=== PATIENT | female | born 1975 | race Caucasian/White ===

== ENCOUNTER 2018-03-07 18:41 | Inpatient (IN) | payer MEDICAID ==
[~2018-03-07] VITALS: Ht 162.6 cm; Wt 75.3 kg
[~2018-03-07 18:41] MED LIST: DULO60EC PO; ESOM40EC PO; FOLI1TAB19 PO; GLIP5TER PO; INSU100S22 SUBQ; MEX2.5 PO; NATE60TA PO; PRED10TA5 PO; TRAM50TA1 PO; ZOLP10TA1 PO; [UNRECOGNIZED DRUG - CODE] PO
[2018-03-07 19:00] VITALS: BP 127/82
[2018-03-07] MEDS ORDERED: KETOROLAC 30 MG/ML VIAL IM ONE (19:25)
--- NOTE | 2018-03-07 19:45 | NUR ---
ASSUME CARE OF 42 Y/O FEMALE WITH CHIEF COMPLAINT OF ABDOMINAL PAIN. PT REPORTS RIGHT UPPER ABD PAIN ASSOCIATED WITH NAUSEA OVER THE PAST 2 DAYS. PT HAS A RECENT HX OF CHOLELITHIASIS, CURRENTLY REPORTS 10 OUT OF 10 PAIN. PT IN STABLE CONDITION. AAOX3, RESP EVEN AND UNLABORED, STEADY GAIT, ABD SOFT , NON-DISTENDED, NON-TENDER, NO GUARDING , NO REBOUND. NO MASSESS. NOTED. BLIND TEACHER WILL IMPLEMENT ORDERS.
[2018-03-07] MEDS ORDERED: KETOROLAC 30 MG/ML VIAL ONE (20:06)
--- NOTE | 2018-03-07 20:06 | NUR ---
accompanied by c/o ruq pain with nausea x 2 days being followed by Dr.A Swain for cholelithiasis hx---cholelithiasis, dermatosis rx---neurontin 300mg tid, tramadol 100mg hs, methotrexate 10mg sat/sun only, atarax 50mg hs, cymbalta 60mg qd, dexilant 60mg qd, plaquenil 200mg bid, folic acid 1mg qd, loratadine 30mg tid, prednisone 10mg qd
[2018-03-07] MEDS ORDERED: HYDROcodone/APAP 5/325 MG 1 TAB TAB PO ONE (20:25)
[2018-03-07 21:13] LABS: BASOPHILS % (AUTO) 0.3 % (0.0-2.0); EOSINOPHILS # (AUTO) 0.1 K/uL (0-0.4); EOSINOPHILS % (AUTO) 1.9 % (0.0-4.0); HEMATOCRIT 42.8 % (36-48); LYMPHOCYTES # (AUTO) 1.1 K/uL (2.5-16.5); LYMPHOCYTES % (AUTO) 18.3 % (20.5-51.1); MEAN CORPUSCULAR HEMOGLOBIN 29 pg (27-31); MEAN CORPUSCULAR HGB CONC 33 g/dL (33-37); MEAN CORPUSCULAR VOLUME 87.8 fL (80-94); MONOCYTES # (AUTO) 0.1 K/uL (0.8-1.0); MONOCYTES % (AUTO) 1.7 % (1.7-9.3); NEUTROPHILS # (AUTO) 4.5 K/uL (1.8-7.7); NEUTROPHILS % (AUTO) 77.8 % (42.2-75.2); PLATELET COUNT (AUTO) 259 K/uL (140-450); RED BLOOD CELL COUNT(AUTO) 4.88 MIL/uL (4.20-5.40); RED CELL DISTRIBUTION WIDTH 14.3 % (11.6-13.7); WHITE BLOOD COUNT (AUTO) 5.8 K/uL (4.8-10.8)
--- NOTE | 2018-03-07 21:22 | NUR ---
PT LEFT FOR CT. NAD NOTED UPON TRANSPORT.
[2018-03-07 21:43] LABS: ANION GAP 11.1 (8-16); CARBON DIOXIDE 29.7 mmol/L (21-32); POTASSIUM 4.8 mmol/L (3.5-5.1)
[2018-03-07 21:44] LABS: ALBUMIN 3.4 g/dL (3.4-5.0); TOTAL BILIRUBIN 0.5 mg/dL (0.0-1.0)
[2018-03-07] MEDS ORDERED: HYDROcodone/APAP 5/325 MG 1 TAB TAB ONE (21:47)
[2018-03-07] MEDS ORDERED: INSULIN REGULAR, HUMAN 100 UNIT/ML VIAL SUBQ ONE (22:00)
[2018-03-07] MEDS ORDERED: MORPHINE SULFATE 4 MG/ML SYR IVP ONE (22:45)
[2018-03-07] MEDS ORDERED: NACL 0.9% 1,000 ML IV SCH (22:57)
[2018-03-07] MEDS ORDERED: MORPHINE SULFATE 2 MG/ML SYR IVP PRN (23:00)
[2018-03-07] MEDS ORDERED: ZOLPIDEM 5 MG TAB PO PRN (23:00)
[2018-03-07] MEDS ORDERED: DOCUSATE SODIUM 100 MG GELCAP PO PRN (23:00)
[2018-03-07] MEDS ORDERED: ACETAMINOPHEN 325 MG TAB PO PRN (23:00)
[2018-03-07] MEDS ORDERED: LORazepam 2 MG/ML VIAL IM/IVP PRN (23:00)
[2018-03-07 23:15] VITALS: BP 122/83
--- NOTE | 2018-03-07 23:15 | NUR ---
REPORT RECEIVED FROM ED NURSE AT BEDSIDE. PT IN STABLE CONDITION. AAOX4. INTRODUCED SELF TO PT AND FAMILY. BOARD UPDATED. PT AMBULATORY WITH BATHROOM PRIVILEGES. IV SITE L AC 20G RUNNING D5 1/2NS @115ML/HR. SKIN WARM, DRY, AND INTACT WITH NO OPEN WOUNDS. PT HAS HX OF DERMATOSIS. PT COMPLAINS OF PAIN 03/04. WILL MEDICATE. BED LOCKED IN LOW POSITION. CALL ROBIN WITHIN REACH. SAFETY MEASURES IN PLACE.
[2018-03-07 23:43] LABS: PROTHROMBIN TIME 9.3 secs (10.8-13.4)
[2018-03-07] MEDS ORDERED: DEXTROSE 50% 50 ML SYR IVP PRN (23:50)
[2018-03-08] VITALS: BP 127/81
[2018-03-08 00:04] LABS: FREE T4 (FREE THYROXINE) 1.02 ng/dL (0.76-1.46); MAGNESIUM 1.8 mg/dL (1.8-2.4); PHOSPHORUS 4.1 mg/dL (2.5-4.9); THYROID STIMULATING HORMONE 0.94 uIU/mL (0.34-3.74)
[2018-03-08] MEDS: BLOOD GLUCOSE MONITORING 1 DEV DEV FS SCH ×4 (00:04→21:18)
--- NOTE | 2018-03-08 00:04 | NUR ---
PT BS [address] POWER ASKED TO CHECK BS. BS 313.
--- NOTE | 2018-03-08 00:06 | NUR ---
PT COMPLAINS OF 9/10 PAIN. MORPHINE GIVEN IVP. PT TOLERATED WELL.
[2018-03-08] MEDS: DEXT 5% / NACL 0.45% 1,000 ML IV SCH ×3 (00:07→16:54)
[2018-03-08] MEDS: INSULIN LISPRO SLIDING SCALE 100 UNITS/ML VIAL SUBQ PRN ×2 (00:11→21:49)
--- NOTE | 2018-03-08 00:11 | NUR ---
BS 313. 8 UNITS OF HUMALOG GIVEN.
[2018-03-08] MEDS ORDERED: INSULIN LANTUS 100 UNITS/ML 10 ML VIAL SUBQ ONE (00:15)
[2018-03-08] MEDS ORDERED: GABA300C PO (00:22)
[2018-03-08] MEDS ORDERED: ATA25 PO (00:22)
[2018-03-08] MEDS ORDERED: LORA10OD44 PO (00:22)
[2018-03-08] MEDS ORDERED: DEXL60EC PO (00:22)
[2018-03-08] MEDS ORDERED: HYDR200T5 PO (00:22)
--- NOTE | 2018-03-08 00:24 | NUR ---
ONE TIME ORDER OF LANTUS TO BE GIVEN. 32 UNITS OF LANTUS GIVEN.
--- NOTE | 2018-03-08 01:50 | NUR ---
PT WATCHING TV WITH FAMILY MEMBER. NO S/S OF DISTRESS.
--- NOTE | 2018-03-08 03:15 | NUR ---
PT ATTEMPTING TO SLEEP. WATCHING TV WITH FAMILY AT BEDSIDE. NO COMPLAINTS OF PAIN OR DISCOMFORT. WILL CONTINUE TO MONITOR.
[2018-03-08] MEDS: ONDANSETRON 4 MG/2 ML VIAL IM/IVP PRN ×2 (05:05→12:50)
--- NOTE | 2018-03-08 05:05 | NUR ---
PAIN 8/10. FACIAL GRIMACE, RESTLESSNESS, AND HEAVY BREATHING NOTED. MORPHINE 1MG GIVEN IVP. PT ALSO COMPLAINS OF NAUSEA. ZOFRAN GIVEN. BS 146. NO INSULIN COVERAGE NEEDED. WILL CONTINUE TO MONITOR.
[2018-03-08] MEDS: PANTOPRAZOLE 40 MG TABEC PO SCH (06:38)
--- NOTE | 2018-03-08 06:38 | NUR ---
PROTONIX GIVEN. PT TOLERATED WELL.
[2018-03-08 06:44] LABS: BASOPHILS % (AUTO) 0.5 % (0.0-2.0); EOSINOPHILS # (AUTO) 0.6 K/uL (0-0.4); EOSINOPHILS % (AUTO) 11.6 % (0.0-4.0); HEMATOCRIT 39.8 % (36-48); HEMOGLOBIN 13.1 g/dL (12.0-16.0); LYMPHOCYTES # (AUTO) 1.8 K/uL (2.5-16.5); LYMPHOCYTES % (AUTO) 36.3 % (20.5-51.1); MEAN CORPUSCULAR HEMOGLOBIN 29 pg (27-31); MEAN CORPUSCULAR HGB CONC 33 g/dL (33-37); MEAN CORPUSCULAR VOLUME 87.2 fL (80-94); MONOCYTES # (AUTO) 0.2 K/uL (0.8-1.0); MONOCYTES % (AUTO) 3.6 % (1.7-9.3); NEUTROPHILS # (AUTO) 2.3 K/uL (1.8-7.7); PLATELET COUNT (AUTO) 266 K/uL (140-450); RED BLOOD CELL COUNT(AUTO) 4.56 MIL/uL (4.20-5.40); RED CELL DISTRIBUTION WIDTH 14.3 % (11.6-13.7); WHITE BLOOD COUNT (AUTO) 4.9 K/uL (4.8-10.8)
--- NOTE | 2018-03-08 07:05 | NUR ---
REPORT GIVEN TO AM NURSE AT BEDSIDE. PT IN STABLE CONDITION.
--- NOTE | 2018-03-08 07:06 | NUR ---
RECEIVED BEDSIDE REPORT FROM AUTOMATIC SILK SCREEN PRINTER NURSE. PATIENT IS AWAKE, ALERT AND ORIENTEDX4. NO SIGNS OF DISTRESS ON ROOM AIR. SHE IS AMBULATORY. SKIN IS INTACT. L AC 20G INFUSING D5 1/2 NS AT 115. CLEAN, DRY AND INTACT. NO PAIN AT THIS TIME. PATIENT IS NPO EXCEPT MEDS. BED IN LOW POSITION. CALL LIGHT WITHIN REACH. DAUGHTER AT BEDSIDE
[2018-03-08 07:26] LABS: CARBON DIOXIDE 31.5 mmol/L (21-32); CREATININE 0.8 mg/dL (0.6-1.3); POTASSIUM 3.5 mmol/L (3.5-5.1)
[2018-03-08 07:41] LABS: CHOL/HDL RATIO 5.1 (1-4.5); MAGNESIUM 1.8 mg/dL (1.8-2.4); PHOSPHORUS 4.6 mg/dL (2.5-4.9)
[2018-03-08 08:00] VITALS: BP 104/65
[2018-03-08] MEDS ORDERED: MORPHINE SULFATE 2 MG/ML SYR IVP SCH (08:40)
--- NOTE | 2018-03-08 08:43 | NUR ---
PATIENT HAS BEEN SCREENED AND CATEGORIZED HIGH NUTRITION RISK. PATIENT WILL BE SEEN WITHIN 1-2 DAYS OF ADMISSION. 03/08/18 03/09/[address]
[2018-03-08] MEDS ORDERED: ONDANSETRON 4 MG/2 ML VIAL IVP SCH (08:45)
[2018-03-08] MEDS: FOLIC ACID 1 MG TAB PO SCH (08:59)
[2018-03-08] MEDS: HYDROXYCHLOROQUINE 200 MG TAB PO SCH ×2 (09:00→21:20)
[2018-03-08] MEDS ORDERED: LORATADINE PO SCH (09:00)
[2018-03-08] MEDS ORDERED: NON-FORMULARY ITEM (Esomeprazole Magnesium* (Nexium*) 40 MG) PO SCH (09:00)
[2018-03-08] MEDS ORDERED: DEXLANSOPRAZOLE 60 MG PO SCH (09:00)
[2018-03-08] MEDS: predniSONE 10 MG TAB PO SCH (09:00)
--- NOTE | 2018-03-08 09:00 | NUR ---
ADMINISTERED MEDS. ALSO MEDS FOR PAIN AND NAUSEA. PATIENT TOLERATED WELL. IV IS CLEAN,DRY AND INTACT. BED IN LOW POSITION. WILL CONTINUE TO MONITOR. ICE PACK GIVEN FOR HER HEAD
[2018-03-08] MEDS: DULoxetine 30 MG CAPDR PO SCH (09:01)
[2018-03-08] MEDS: GABAPENTIN 300 MG CAP PO SCH ×3 (09:01→17:00)
[2018-03-08] MEDS: HYDROcodone/APAP 5/325 MG 1 TAB TAB PO PRN (10:24)
--- NOTE | 2018-03-08 10:30 | NUR ---
ADMINISTERED PRN PAIN MEDS. PATIENT TOLERATED WELL. WILL CONTINUE TO MONITOR THE PATIENT
--- NOTE | 2018-03-08 10:33 | NUR ---
03/08/18 RD INITIAL ASSESSMENT COMPLETED PLEASE REFER TO NUTRITION ASSESSMENT UNDER CARE ACTIVITY FOR ESTIMATED NUTRITIONAL NEEDS. 1. CONTINUE NPO MEDICALLY NECESSARY 2. IF/WHEN PT IS MEDICALLY STABLE CONSIDER ADVANCING DIET TO CCHO 60 GM 3. PROVIDED NUTRITION EDUCATION FOR GALLBLADDER MNT 4. PROVIDE DIABETES NUTRITION EDUCATION ON FOLLOW UP VISIT 5. RD TO FOLLOW-UP 3-5 DAYS, MODERATE RISK [address]
--- NOTE | 2018-03-08 12:11 | NUR ---
PATIENT AMBULATED TO THE RESTROOM. GAIT IS STEADY. NO SIGNS OF DISTRESS. PATIENT BACK IN BED. WILL CONTINUE TO MONITOR, DAUGHTER AT BEDSIDE
--- NOTE | 2018-03-08 12:54 | NUR ---
ADMINISTERED MEDS AND ANTI NAUSEA MED. PATIENT TOLERATED WELL. ADMINISTER NEW BAG OF IVF. IV CLEAN, DRY AND INTACT. WILL CONTINUE TO MONITOR THE PATIENT. BED IN LOW POSITION. DAUGHTER AT BEDSIDE.
[2018-03-08] MEDS: MORPHINE SULFATE 2 MG/ML SYR IVP PRN (14:06)
--- NOTE | 2018-03-08 14:13 | NUR ---
ADMINISTERED PRN PAIN MEDS. PATIENT TOLERATED WELL. BED IN LOW POSITION. CALL LIGHT WITHIN REACH. WILL CONTINUE TO MONITOR THE PATIENT
--- NOTE | 2018-03-08 14:42 | NUR ---
PATIENT SPILLED ICE PACK ON BED, CHANGED BEDDING. PATIENT OK, NO SIGNS OF DISTRESS. BED IN LOW POSITION. CALL LIGHT WITHIN REACH
[2018-03-08 16:00] VITALS: BP 111/69
--- NOTE | 2018-03-08 16:00 | NUR ---
FAMILY AT BEDSIDE. THEY WANT TO KNOW WHEN DR MILLER IS COMING. WILL PAGE DR MILLER.
[2018-03-08] MEDS ORDERED: BUPIVACAINE-MPF 0.5% 30 ML VIAL INJ ONE (16:21)
--- NOTE | 2018-03-08 16:28 | NUR ---
DR MENDEZ SAID TO HOLD ON INSULIN UNTIL AFTER SURGERY. DR MILLER IS ON THE WAY TO SEE THE PATIENT.
[2018-03-08] MEDS ORDERED: ROCURONIUM 50 MG/5 ML VIAL IV ONE (16:55)
[2018-03-08] MEDS ORDERED: SUCCINYLCHOLINE CHLORIDE 200 MG/10 ML VIAL IVP ONE (16:55)
[2018-03-08] MEDS ORDERED: SEVOFLURANE 250 ML BTL INH ONE (16:55)
[2018-03-08] MEDS ORDERED: ONDANSETRON 4 MG/2 ML VIAL ONE (16:55)
[2018-03-08] MEDS ORDERED: DEXAMETHASONE 4 MG/ML VIAL ONE (16:55)
[2018-03-08] MEDS ORDERED: PROPOFOL 200 MG/20 ML VIAL IV ONE (16:55)
[2018-03-08] MEDS ORDERED: GLYCOPYRROLATE 0.2 MG/ML VIAL ONE (16:55)
[2018-03-08] MEDS ORDERED: PHENYLEPHRINE 10 MG/ML VIAL ONE (16:55)
[2018-03-08] MEDS ORDERED: fentaNYL 0.05 MG/ML VIAL ONE (17:05)
[2018-03-08] MEDS ORDERED: MEPERIDINE 50 MG/ML SYR ONE (17:05)
[2018-03-08] MEDS ORDERED: MIDAZOLAM 2 MG/2 ML VIAL ONE (17:05)
[2018-03-08] MEDS ORDERED: ceFAZolin 1,000 MG VIAL ONE ×3 (17:09→21:07)
--- NOTE | 2018-03-08 17:09 | NUR ---
PATIENT IN OR. PATIENT LEFT IN STABLE CONDITION.
[2018-03-08] MEDS ORDERED: BLOOD GLUCOSE MONITORING 1 DEV DEV FS ONE (18:50)
[2018-03-08] MEDS ORDERED: MEPERIDINE 25 MG/ML SYR IVP PRN (18:50)
[2018-03-08] MEDS ORDERED: diphenhydrAMINE 50 MG/ML VIAL IVP PRN (18:50)
[2018-03-08] MEDS ORDERED: ONDANSETRON 4 MG/2 ML VIAL IVP PRN (18:50)
[2018-03-08] MEDS: NACL 0.9% 1,000 ML IV SCH (18:50)
[2018-03-08] MEDS ORDERED: HYDROmorphone 1 MG/ML AMP IVP PRN (18:50)
--- NOTE | 2018-03-08 19:00 | NUR ---
GAVE BEDSIDE REPORT TO PROCESS CHECKER NURSE. PATIENT STILL IN OR.
[2018-03-08] MEDS: HYDROmorphone PFS 2 MG/ML SYR ONE ×3 (19:04→19:24)
--- NOTE | 2018-03-08 19:52 | NUR ---
PT ARRIVED VIA BED ESCORTED BY SARITHA ORDOÑEZ FRO THE OR. PT LETHARGIC BUT AROUSABLE TO NAME AND LIGHT TOUCH. PT HAS L AC RUNNING N/S AT 115. SHE HAS 4 LRG BAND-AIDES COVERING 4 NAZANIN FROM LAP ROSY SURGERY. REPORT GIVEN FROM SARITHA AT BEDSIDE, PT WAS GIVEN A TOTAL OF 1.5MG OF DILAUDID ( BETWEEN ALL 3 DOSES). V /S FOLLOWS: T 98.3 P 96 R 16 B/P 135/83. F/S WAS 251 6 UNITS OF COVERAGE WAS GIVEN.
--- NOTE | 2018-03-08 20:15 | NUR ---
PT IN BED WITH FAMILY REMAINING AT BEDSIDE, PT SLEEPING BUT RESPONDS TO NAME. V/S FOLLOWS T 98.9 P 98 R 16 B/P 121/75 02 93% WITH R/A. FAMILY REMAINS AT BEDSIDE. BED IS LOW AND SIDE RAILS UP X2, CALL ROBIN IN REACH.
[2018-03-08] MEDS ORDERED: INSULIN DETEMIR 100 UNITS/ML 10 ML VIAL SUBQ SCH (21:00)
[2018-03-08] MEDS ORDERED: NON-FORMULARY ITEM (Insulin Glargine,Hum.rec.anlog (Lantus Solostar) 30 UNIT) SUBQ SCH (21:00)
--- NOTE | 2018-03-08 21:00 | NUR ---
PT SLEEPING BUT AROUSABLE TO NAME, PT GIVEN ORDERED MEDICATION INCLUDING ABT ANCEF. NO REACTION NOTED. PT DIET SWITCHED TO A CARDIAC DIET. PT REQUESTING JELLO AMD JUICE WHICH WAS GIVEN AND CONSUMED WITHOUT INCIDENT. ORDERED LEVEMIR HOWEVER, LEVEMIR COULD NOT BE FOUND. CHARGE NURSE AND HOUSE SUP ALERTED.
[2018-03-08] MEDS: hydrOXYzine HCL 25 MG TAB PO SCH (21:19)
[2018-03-08] MEDS: traMADol 50 MG TAB PO SCH (21:21)
--- NOTE | 2018-03-08 22:00 | NUR ---
DR GARCIA NOTIFIED REGARDING LEVEMIR ORDER, NEW ORDER NOTED FOR LANTUS 32 UNITS. 32 OF LANTUS WAS DRAWN UP AND VERIFIED BY 2 NURSES, THEM GIVEN TO PT.
[2018-03-09] VITALS: BP 118/74
[2018-03-09] MEDS: MORPHINE SULFATE 2 MG/ML SYR IVP PRN ×4 (00:13→18:12)
--- NOTE | 2018-03-09 00:30 | NUR ---
PT IN LOW BED WITH SIDE RAILS UP X 2, AND IV SITE RUNNING N/S AT 115 ORDERED. PT C/O 8/10 PAIN IN ABDOMEN AND DIFFICULTY FALLING ASLEEP, PT GIVEN PRN MORPHINE IVP AND PRN AMBIEN 5MG. PT ALSO REQUESTED ANOTHER JELLO WHICH WAS PROVIDED. FAMILY, REMAINS AT BEDSIDE AND PT CALL ROBIN IN REACH.V/S FOLLOWS T 98.8 P 100 R 18 B/P 118/74 02 91% WITH R/A.
[2018-03-09] MEDS: DEXT 5% / NACL 0.45% 1,000 ML IV SCH ×3 (02:29→11:55)
--- NOTE | 2018-03-09 02:30 | NUR ---
PT SLEEPING NO S/S OF PAIN OR DISTRESS NOTED, FAMILY AT BEDSIDE. BED LOW WITH SIDE RAILS UP X 2 AND CALL ROBIN IN REACH.
[2018-03-09] MEDS: NACL 0.9% 1,000 ML IV SCH ×3 (03:11→19:50)
[2018-03-09] MEDS ORDERED: ceFAZolin 1,000 MG VIAL ONE (04:55)
--- NOTE | 2018-03-09 05:00 | NUR ---
GAVE PT ATIVAN IVO/PRN FOR ANXIETY
[2018-03-09] MEDS: PANTOPRAZOLE 40 MG TABEC PO SCH (05:58)
[2018-03-09] MEDS: INSULIN LISPRO SLIDING SCALE 100 UNITS/ML VIAL SUBQ PRN ×4 (06:15→21:34)
[2018-03-09] MEDS: BLOOD GLUCOSE MONITORING 1 DEV DEV FS SCH ×4 (06:21→21:32)
--- NOTE | 2018-03-09 06:30 | NUR ---
PT IN LOW BED WITH SIDE RAILS UP X 2 V/S FOLLOWS T 98.4 P 61 R 18 B/P 146/72 02 94 WITH R/A.
[2018-03-09 07:04] LABS: CREATININE 0.8 mg/dL (0.6-1.3)
--- NOTE | 2018-03-09 07:15 | NUR ---
REPORT GIVEN TO WILLIAM RN DAYSHIFT NURSE AT BEDSIDE FOR CONTINUITY OF CARE, PT IN STABLE CONDITION.
--- NOTE | 2018-03-09 07:16 | NUR ---
RECEIVED BEDSIDE REPORT FROM COPY HOLDER NURSE FOR CONTINUITY OF CARE. PATIENT IS AWAKE, ALERT AND ORIENTEDX4 [place] SPEAKING. NO SIGNS OF DISTRESS ON ROOM AIR. SHE IS AMBULATORY. PT HAS 4 SURGICAL INCISION ON ABDOMEN D/T S/P LAP ROMMEL WITH DR. MILLER ON 03/08/18. IV TO L AC 20G INFUSING NS AT 120 ML/HR. PATIENT C/O PAIN AT THIS TIME, INFORMED HER OF SCHEDULED MEDICATION, SHE VERBALIZED UNDERSTANDING. UPDATED BOARD. SAFETY PRECAUTION IN [place], BED IN LOW POSITION. CALL LIGHT WITHIN REACH. DAUGHTER AT BEDSIDE. WILL CONTINUE TO MONITOR PATIENT.
[2018-03-09 07:17] LABS: POTASSIUM 4.1 mmol/L (3.5-5.1)
[2018-03-09 07:23] LABS: HEMATOCRIT 35.3 % (36-48); HEMOGLOBIN 11.9 g/dL (12.0-16.0); MEAN CORPUSCULAR HEMOGLOBIN 30 pg (27-31); MEAN CORPUSCULAR HGB CONC 34 g/dL (33-37); MEAN CORPUSCULAR VOLUME 89.3 fL (80-94); PLATELET COUNT (AUTO) 248 K/uL (140-450); RED BLOOD CELL COUNT(AUTO) 3.95 MIL/uL (4.20-5.40); RED CELL DISTRIBUTION WIDTH 13.5 % (11.6-13.7); WHITE BLOOD COUNT (AUTO) 5.8 K/uL (4.8-10.8)
[2018-03-09 07:24] LABS: BASOPHILS % (AUTO) 0.5 % (0.0-2.0); EOSINOPHILS # (AUTO) 0.5 K/uL (0-0.4); EOSINOPHILS % (AUTO) 9.2 % (0.0-4.0); LYMPHOCYTES # (AUTO) 1.8 K/uL (2.5-16.5); LYMPHOCYTES % (AUTO) 31.1 % (20.5-51.1); MONOCYTES # (AUTO) 0.3 K/uL (0.8-1.0); NEUTROPHILS # (AUTO) 3.2 K/uL (1.8-7.7); NEUTROPHILS % (AUTO) 53.2 % (42.2-75.2)
[2018-03-09 07:33] LABS: ANION GAP 9.2 (8-16); CARBON DIOXIDE 26.9 mmol/L (21-32)
[2018-03-09 08:00] VITALS: BP 115/72
[2018-03-09] MEDS ORDERED: MORPHINE SULFATE 2 MG/ML SYR IVP SCH (08:31)
[2018-03-09] MEDS: FOLIC ACID 1 MG TAB PO SCH (08:35)
[2018-03-09] MEDS: DULoxetine 30 MG CAPDR PO SCH (08:35)
[2018-03-09] MEDS: GABAPENTIN 300 MG CAP PO SCH ×3 (08:35→17:21)
[2018-03-09] MEDS: HYDROXYCHLOROQUINE 200 MG TAB PO SCH ×2 (08:35→21:32)
[2018-03-09] MEDS: predniSONE 10 MG TAB PO SCH (08:35)
--- NOTE | 2018-03-09 08:37 | NUR ---
ORDERED MEDICATIONS GIVEN. PATIENT TOLERATED IT WELL. SON AT BEDSIDE. WILL CONTINUE TO MONITOR PATIENT.
[2018-03-09] MEDS: NEOMYCIN/POLYMYXIN/HC OT SOL. 10 ML BTL RIGHT EAR SCH ×3 (09:01→17:21)
--- NOTE | 2018-03-09 09:02 | NUR ---
PATIENT C/O [address] MENDEZ WAS AT BEDSIDE FOR HIS ASSESSMENT. NEW ORDER IN FOR ONE TIME DOSE OF MORPHINE IVP. MEDICATION GIVEN. PATIENT TOLERATED IT WELL. SAFETY PRECAUTION IN PLACE, DAUGHTER AT BEDSIDE. WILL CONTINUE TO MONITOR PATIENT.
[2018-03-09 09:10] LABS: T4 (THYROXINE) 6.8 ug/dL (4.5-12.0)
--- NOTE | 2018-03-09 11:10 | NUR ---
PATIENT C/O 10/10 PAIN. PRN PAIN MEDICATION GIVEN. PATIENT TOLERATED IT WELL. SAFETY PRECAUTION IN PLACE, SON AT BEDSIDE. WILL CONTINUE TO MONITOR PATIENT.
[2018-03-09] MEDS: CEFAZOLIN SODIUM 1 GM/D5W PM 50 ML IV SCH ×2 (12:10→21:32)
--- NOTE | 2018-03-09 12:17 | NUR ---
DR. MILLER IN TO SEE THE PATIENT. WILL WAIT FOR HIS EVALUATION.
[2018-03-09] MEDS ORDERED: METHOCARBAMOL 500 MG TAB PO SCH (12:40)
[2018-03-09] MEDS: SIMETHICONE 40 MG/0.6 ML PO PRN (13:18)
[2018-03-09] MEDS: HYDROcodone/APAP 5/325 MG 1 TAB TAB PO PRN (15:15)
--- NOTE | 2018-03-09 15:15 | NUR ---
PATIENT C/O 6/10 PAIN. PRN MEDICATION GIVEN. PATIENT TOLERATED IT WELL. SAFETY PRECAUTION IN PLACE, AT BEDSIDE. SAFETY PRECAUTION IN PLACE, CALL LIGHT WITHIN REACH. WILL CONTINUE TO MONITOR PATIENT.
[2018-03-09 16:00] VITALS: BP 116/67
--- NOTE | 2018-03-09 16:06 | NUR ---
PATIENT AMBULATING IN HALLWAY ON STEADY GAIT. AT SIDE. WILL CONTINUE TO MONITOR PATIENT.
[2018-03-09] MEDS ORDERED: ALUMINUM HYD/MAG/SIMETHICONE 30 ML UDC PO PRN (18:05)
--- NOTE | 2018-03-09 18:12 | NUR ---
PATIENT C/O 8/10 PAIN. PRN PAIN MEDICATION GIVEN. PATIENT TOLERATED IT WELL. SAFETY PRECAUTION IN PLACE, [place] AT BEDSIDE. WILL CONTINUE TO MONITOR PATIENT.
--- NOTE | 2018-03-09 19:32 | NUR ---
REPORT GIVEN TO TECHNICAL ADMINISTRATIVE ASSISTANT NURSE AT BEDSIDE FOR CONTINUITY OF CARE. PATIENT IN STABLE CONDITION.
--- NOTE | 2018-03-09 19:33 | NUR ---
RECEIVED REPORT FROM DAYSHIFT NURSE AT BEDSIDE FOR CONTINUITY OF CARE. PT AAOX4, KOREAN SPEAKING. IV NOTED LAC 20G NS 120ML/HR. NO SOB NO S/S OF DISTRESS ON 2L O2 NC. BED LOWERED CALL LIGHT WITHIN REACH. WILL CONTINUE TO MONITOR.
--- NOTE | 2018-03-09 20:10 | NUR ---
PT REQUESTED TO STAY THE NIGHT. RAGHAVENDRA CHARGE NURSE AND I LET KNOW. HE COULD NOT STAY D/T POLICY AND FEMALE ROOMATE IN B BED. WAS MADE AWARE BOTH RAGHAVENDRA AND I ARE DANISH SPEAKING AND SHE IS IN GOOD HANDS.
[2018-03-09] MEDS ORDERED: INSULIN LANTUS 100 UNITS/ML 10 ML VIAL SUBQ SCH ×2 (21:00)
[2018-03-09] MEDS: METHOCARBAMOL 500 MG TAB PO SCH (21:32)
[2018-03-09] MEDS: hydrOXYzine HCL 25 MG TAB PO SCH (21:32)
[2018-03-09] MEDS: traMADol 50 MG TAB PO SCH (21:32)
[2018-03-10] VITALS: BP 114/72
[2018-03-10] MEDS: MORPHINE SULFATE 2 MG/ML SYR IVP PRN (00:03)
[2018-03-10] MEDS: SIMETHICONE 40 MG/0.6 ML PO PRN (00:08)
--- NOTE | 2018-03-10 01:03 | NUR ---
ADMIN PAIN MED 1 HR AGO. PAIN MED EFFECTIVE WILL CONTINUE TO MONITOR.
--- NOTE | 2018-03-10 01:08 | NUR ---
SIMETHICON GIVEN FOR GAS RELIEF PT STATED SHE HAS LESS ABDOMINAL PAIN. LET HER KNOW IT IS GOOD TO CHANGE POSITION AND WALK TO PASS GAS.
--- NOTE | 2018-03-10 04:00 | NUR ---
PT COMPLAINED IV LEAKING. AWARE OF IV FLUIDS LEAKING. LET PT KNOW I WILL RESTART NEW IV SOON. I ASKED IF SHE WANTED A NEW GOWN AND PT STATED SHE WAS FINE WITH HER GOWN HAVING A MINIMAL SOAK NEAR LOWER CHEST.
[2018-03-10] MEDS: NACL 0.9% 1,000 ML IV SCH (04:10)
--- NOTE | 2018-03-10 05:27 | NUR ---
WENT TO ROOM TO DO BLOOD GLUCOSE CHECK. FOREST FIRE PREVENTION SPECIALIST AT BEDSIDE ASKED IS I COULD HAVE A SAMPLE OF BLOOD BEFORE HE PUTS BANDAGE. WHEN GRABBING A SAMPLE BLOOD DRIPPED DOWN THE PT RAC. GOT A SAMPLE AND CLEANED UP HER ARM. BG WAS 161 WILL COVER WITH 2 UNITS.
[2018-03-10] MEDS: HYDROcodone/APAP 5/325 MG 1 TAB TAB PO PRN (05:49)
[2018-03-10] MEDS: BLOOD GLUCOSE MONITORING 1 DEV DEV FS SCH (05:49)
[2018-03-10] MEDS: INSULIN LISPRO SLIDING SCALE 100 UNITS/ML VIAL SUBQ PRN (05:55)
--- NOTE | 2018-03-10 06:00 | NUR ---
CHANGED IV TO LFA 22G. INFUSING WELL. CONNECTED TO IV FLUIDS. WILL CONTINUE TO MONITOR.
[2018-03-10] MEDS: CEFAZOLIN SODIUM 1 GM/D5W PM 50 ML IV SCH (06:13)
[2018-03-10] MEDS: PANTOPRAZOLE 40 MG TABEC PO SCH (06:15)
[2018-03-10 06:44] LABS: BASOPHILS % (AUTO) 0.7 % (0.0-2.0); EOSINOPHILS # (AUTO) 0.7 K/uL (0-0.4); EOSINOPHILS % (AUTO) 12.8 % (0.0-4.0); HEMATOCRIT 36.9 % (36-48); HEMOGLOBIN 11.9 g/dL (12.0-16.0); LYMPHOCYTES % (AUTO) 36.7 % (20.5-51.1); MEAN CORPUSCULAR HEMOGLOBIN 29 pg (27-31); MEAN CORPUSCULAR HGB CONC 32 g/dL (33-37); MEAN CORPUSCULAR VOLUME 88.6 fL (80-94); MONOCYTES # (AUTO) 0.4 K/uL (0.8-1.0); MONOCYTES % (AUTO) 7.7 % (1.7-9.3); NEUTROPHILS # (AUTO) 2.3 K/uL (1.8-7.7); NEUTROPHILS % (AUTO) 42.1 % (42.2-75.2); PLATELET COUNT (AUTO) 230 K/uL (140-450); RED BLOOD CELL COUNT(AUTO) 4.17 MIL/uL (4.20-5.40); RED CELL DISTRIBUTION WIDTH 14.3 % (11.6-13.7); WHITE BLOOD COUNT (AUTO) 5.3 K/uL (4.8-10.8)
--- NOTE | 2018-03-10 06:49 | NUR ---
ADMIN PAIN MED. PAIN MED EFFECTIVE. WILL CONTINUE TO MONITOR.
[2018-03-10 07:19] LABS: CARBON DIOXIDE 28.8 mmol/L (21-32); CREATININE 0.7 mg/dL (0.6-1.3); POTASSIUM 3.8 mmol/L (3.5-5.1)
[2018-03-10] MEDS ORDERED: MAA30 PO (07:27)
--- NOTE | 2018-03-10 07:28 | NUR ---
ENDORSED REPORT TO DAYSHIFT NURSE AT BEDSIDE FOR CONTINUITY OF CARE.
--- NOTE | 2018-03-10 07:29 | NUR ---
RECEIVED BEDSIDE REPORT FROM HOME RESTORATION SERVICE SUPERVISOR NURSE FOR CONTINUITY OF CARE. PATIENT IS AWAKE, ALERT AND ORIENTED X4 ALBANIAN SPEAKING. NO SIGNS OF DISTRESS ON ROOM AIR. SHE IS AMBULATORY. PT HAS 4 SURGICAL INCISION ON ABDOMEN D/T S/P LAP ROMMEL WITH DR. MILLER ON 03/08/18. IV TO L FA 22G INFUSING NS AT 120 ML/HR. PATIENT C/O PAIN AT THIS TIME, 08/04, LAST MEDICATED AT 0529. INFORMED HER OF SCHEDULED MEDICATION, SHE VERBALIZED UNDERSTANDING. UPDATED BOARD. SAFETY PRECAUTION IN PLACE, BED IN LOW POSITION. CALL LIGHT WITHIN REACH. WILL CONTINUE TO MONITOR PATIENT.
[2018-03-10] MEDS ORDERED: ONDA8ODT2 PO (07:30)
[2018-03-10] MEDS ORDERED: ACET-2863 PO (07:30)
[2018-03-10] MEDS ORDERED: DOCU-299 PO (07:37)
--- NOTE | 2018-03-10 07:58 | NUR ---
DR MENDEZ IN TO SPEAK TO PATIENT ABOUT HER IMPENDING DISCHARGE.
[2018-03-10 08:00] VITALS: BP 115/74
[2018-03-10] MEDS: NEOMYCIN/POLYMYXIN/HC OT SOL. 10 ML BTL RIGHT EAR SCH (08:10)
[2018-03-10] MEDS: GABAPENTIN 300 MG CAP PO SCH (08:11)
[2018-03-10] MEDS: predniSONE 10 MG TAB PO SCH (08:11)
[2018-03-10] MEDS: FOLIC ACID 1 MG TAB PO SCH (08:11)
[2018-03-10] MEDS: METHOCARBAMOL 500 MG TAB PO SCH (08:11)
[2018-03-10] MEDS: HYDROXYCHLOROQUINE 200 MG TAB PO SCH (08:11)
[2018-03-10] MEDS: DULoxetine 30 MG CAPDR PO SCH (08:12)
--- NOTE | 2018-03-10 08:17 | NUR ---
ORDERED MEDICATIONS GIVEN. PRN MALAAX GIVEN BECAUSE PATIENT C/O BLOATING OF ABDOMEN. PRN MED GIVEN. PATIENT TOLERATED IT WELL. AND FRIENDS AT BEDSIDE. INFORMED HER OF IMPENDING DISCHARGE. SHE VERBALIZED UNDERSTANDING. SAFETY PRECAUTION IN PLACE, CALL LIGHT WITHIN REACH, WILL CONTINUE TO MONITOR PATIENT.
--- NOTE | 2018-03-10 10:15 | NUR ---
DISCHARGE INSTRUCTIONS GIVEN TO PATIENT AND HER DAUGHTER. [employer] TELEPHONE USED, SPOKE TO GURU #[id number]. PATIENT VERBALIZED UNDERSTANDING ABOUT WOUND CARE, MD FOLLOW UP, WORSENING SYMPTOMS AND DIABETES CARE. IV REMOVED, IV CATHETER INTACT, MINIMAL BLOOD NOTED. PATIENT ASKED ABOUT PNEUMONIA VACCINE. INFORMED DR. MENDEZ. WILL WAIT FOR PHARMACY VERIFICATION. PATIENT NOW WILL CHANGE INTO HER OWN CLOTHING AND GET READY TO BE DISCHARGED.
--- NOTE | 2018-03-10 10:21 | NUR ---
PNEUMONIA VACCINE GIVEN. PATIENT TOLERATED IT WELL. INFORMED PATIENT TO WAIT TO SEE IF THERE ARE ANY SIDE EFFECTS TO VACCINE BEFORE PATIENT CAN LEAVE. PATIENT VERBALIZED UNDERSTANDING. AND DAUGHTER AT BEDSIDE.
[2018-03-10] MEDS ORDERED: PNEUMOCOCCAL VACCINE 23 MCG/0.5 ML VIAL IMVAC SCH (10:30)
--- NOTE | 2018-03-10 10:45 | NUR ---
PATIENT WHEELED OFF FLOOR WITH HER FAMILY MEMBERS. PATIENT TOOK ALL HER BELONGINGS WITH HER. PATIENT IN STABLE CONDITION.
--- NOTE | 2018-03-10 21:30 | NUR ---
PAU GAMEZ LEFT THE FLOOR. Addendum: 03/10/18 at 2227 by Giuliana Yip RN WRONG DATE AND TIME PT LEFT FLOOR AT 03/09/18 AT 2130
[2018-03-11] MEDS ORDERED: METHOTREXATE 2.5 MG TAB PO SCH (09:00)
== END 2018-03-10 10:45 | disposition home or self-care (01) | DRG 263 ==
LOC: MED 18:41 → MTU 22:57
PROVIDERS: ADMIT General Practice; ATTEND General Practice
PROC: 0FT44ZZ Resection of Gallbladder, Percutaneous Endoscopic Approach (ICD-10-PCS; principal; 2018-03-08 14:00)
PROC: 3E0234Z Introduction of Serum, Toxoid and Vaccine into Muscle, Percutaneous Approach (ICD-10-PCS; 2018-03-10)
DX: K80.60 Calculus of gallbladder and bile duct with cholecystitis, unspecified, without obstruction (principal); E11.40 Type 2 diabetes mellitus with diabetic neuropathy, unspecified; M33.10 Other dermatomyositis, organ involvement unspecified; E11.65 Type 2 diabetes mellitus with hyperglycemia; K76.0 Fatty (change of) liver, not elsewhere classified; K21.9 Gastro-esophageal reflux disease without esophagitis; K66.0 Peritoneal adhesions (postprocedural) (postinfection); E78.5 Hyperlipidemia, unspecified; E66.3 Overweight; Z68.28 Body mass index [BMI] 28.0-28.9, adult; Z79.4 Long term (current) use of insulin; Z79.899 Other long term (current) drug therapy; Z83.3 Family history of diabetes mellitus; Z23 Encounter for immunization
CPT/HCPCS: 36415; 71045; 76705; 80048; 80053; 82140; 82150; 82948; 83036; 83605; 83690; 83735; 83880; 84100; 84436; 84439; 84443; 84479; 84484; 85025; 85610; 85730; 87081; 90732; 93005; 96372; 99285; J0330; J0690; J1100; J1170; J1815; J1885; J2060; J2175; J2250; J2270; J2370; J2405; J2704; J3010; J3490; J7030; J7060; J7512; J8610; Q0092